=== PATIENT | female | born 1980 | race Caucasian/White ===

== ENCOUNTER 2020-05-04 13:07 | Outpatient (CLI) | payer BC, SELFPAY ==
[2020-05-04 22:14] LABS: SARS-CoV-2 RNA PCR Negative
== END 2020-05-04 13:08 | disposition home or self-care (01) ==
LOC: CHSLAB 13:12
PROVIDERS: PCP Internal Medicine; Visit Provider Physician Assistant
DX: Z20.828 Contact with and (suspected) exposure to other viral communicable diseases (principal)
CPT/HCPCS: 87635; C9803; U0003